=== PATIENT | male | born 1970 | race Caucasian/White ===

== ENCOUNTER 2021-03-17 19:09 | Emergency (ER) | payer BC ==
[~2021-03-17] VITALS: Ht 182.8 cm; Wt 103.6 kg
[2021-03-17] MEDS ORDERED: KETOROLAC 60 MG/2 ML VIAL IM ONE (19:45)
[2021-03-17] MEDS ORDERED: predniSONE 20 MG TAB PO ONE (19:45)
[2021-03-17] MEDS ORDERED: ORPHENADRINE 60 MG/2 ML (NORFLEX) AMP (ED ONLY) IM ONE (19:45)
[2021-03-17] MEDS ORDERED: METHOCARBAMOL 750 MG (ROBAXIN) TAB PO ONE (19:45)
[2021-03-17] MEDS ORDERED: PRD20T PO (19:46)
[2021-03-17] MEDS ORDERED: METH-731 PO (19:46)
--- NOTE | 2021-03-17 19:46 | ED Back Pain ---
General Chief Complaint: Back Problems Stated Complaint: LOWER BACK PAIN Nursing Triage Note: Pt ambulatory into ER with complaint of lower back pain that started today while working. 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 Pt denies twisting wrong of falling. Pt is unsure of cause. Source of Information: Patient Exam Limitations: No Limitations History of Present Illness Date Seen by Provider: Mar 17, 2021 Time Seen by Provider: 19:42 Initial Comments To ER with low back pain that started today while at work. 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 He still on his probationary period for the railroad. His pain is midline low back that occasionally radiates down the left leg. No fevers or chills no trauma no loss of bowel or bladder control or numbness of his genitals. Location: Lumbar Spine Timing/Duration: 2-3 Days Severity: Moderate Pain/Injury Location: Back Associated Symptoms: denies symptoms Allergies and Home Medications Allergies Coded Allergies: No Known Drug Allergies (Unverified , 03/17/21) Home Medications Methocarbamol 500 Mg Tablet, 500 MG PO Q6-8HR Prescribed by: RONN AUGUSTIN on 03/17/211945 Prednisone 20 Mg Tab, 40 MG PO DAILY Prescribed by: RONN AUGUSTIN on 03/17/211945 Patient Home Medication List Home Medication List Reviewed: Yes Review of Systems Constitutional: see HPI EENTM: see HPI Respiratory: no symptoms reported Cardiovascular: no symptoms reported Genitourinary: no symptoms reported Musculoskeletal: see HPI Skin: no symptoms reported Psychiatric/Neurological: No Symptoms Reported Past [id number] Hx Patient Social History Tobacco Use?: No Use of E-Cig and/or Vaping dev: No Substance use?: No Alcohol Use?: No Pt feels they are or have been: No Immunizations Up To Date Influenza Vaccine Up-to-Date: No; Not Current Second COVID19 Vaccination Livan: December 2020 COVID19 Vaccine Ingot Caster: Kandis Physical Exam Vital Signs Vital Signs - First Documented 03/17/21 19:23 Temp 36.1 Pulse 84 Resp 20 B/P (MAP) 145/97 (113) Pulse Ox 95 O2 Delivery Room Air Capillary Refill : Less Than 3 Seconds Height, Weight, BMI Height: '" Weight: lbs. oz. kg; 31.00 BMI Method: General Appearance: No Apparent Distress, WD/WN HEENT: PERRL/EOMI, TMs Normal Neck: Full Range of Motion, Normal Inspection Cardiovascular: Regular Rate, Rhythm, Normal Peripheral Pulses Respiratory: No Accessory Muscle Use, No Respiratory Distress Gastrointestinal: Normal Bowel Sounds, Non Tender, Soft Neurologic/Psychiatric: Alert, Oriented x3 Skin: Normal Color, Warm/Dry Progress/Results/Core Measures Results/Orders My Orders Orders - RONN AUGUSTIN APRN Prednisone Tablet (Deltasone Tablet) (03/17/21 19:45) Ketorolac Injection (Toradol Injection) (03/17/21 19:45) Orphenadrine Inj (Ed Only) (Norflex Inje (03/17/21 19:45) Methocarbamol Tablet (Robaxin Tablet) (03/17/21 19:45) Medications Given in ED Current Medications Medications Dose Ordered Sig/Patricio Route Start Time Stop Time Status Last Admin Dose Admin Ketorolac Tromethamine 60 mg ONCE ONCE IM 03/17/21 19:45 03/17/21 19:46 DC 03/17/21 20:03 60 MG Orphenadrine Citrate 60 mg ONCE ONCE IM 03/17/21 19:45 03/17/21 19:46 DC 03/17/21 20:01 60 MG Prednisone 40 mg ONCE ONCE PO 03/17/21 19:45 03/17/21 19:46 DC 03/17/21 20:03 40 MG Vital Signs/I&O 03/17/21 19:23 Temp 36.1 Pulse 84 Resp 20 B/P (MAP) 145/97 (113) Pulse Ox 95 O2 Delivery Room Air Blood Pressure Mean: 113 Departure Communication (Admissions) 2005-now complains of some right upper quadrant abdominal pain ongoing for several months with tenderness to palpation. History of pancreatitis he like to be checked for this to. Impression Primary Impression: Acute low back pain Disposition: HOME, SELF-CARE Condition: Stable Departure-Patient Inst. Decision time for Depature: 19:44 Patient Instructions: Low Back Pain (DC) Add. Discharge Instructions: 1. Follow-up with a primary care provider to help get a MRI of the low back scheduled. This will help to determine the cause of your pain though most of the time this is related to a disc bulge. Most of the time disc bulges resolve on their own with or without treatment but medications can help to make that a little more tolerable. All discharge instructions reviewed with patient and/or family. Voiced understanding. Scripts Methocarbamol (Methocarbamol) 500 Mg Tablet 500 MG PO Q6-8HR for Back Pain, #30 TAB Prov: RONN AUGUSTIN APRN 03/17/21 Prednisone (Prednisone) 20 Mg Tab 40 MG PO DAILY, #6 TAB 0 Refills Prov: RONN AUGUSTIN APRN 03/17/21 RONN AUGUSTIN APRN Mar 17, 2021 19:46
[2021-03-17 20:17] LABS: BASOPHILS % (AUTO) 0 % (0-10); EOSINOPHILS # (AUTO) 0.1 10^3/uL (0.0-0.3); EOSINOPHILS % (AUTO) 1 % (0-10); HEMATOCRIT 45 % (40-54); HEMOGLOBIN 15.4 g/dL (13.3-17.7); LYMPHOCYTES % (AUTO) 26 % (12-44); MEAN CORPUSCULAR HEMOGLOBIN 31 pg (25-34); MEAN CORPUSCULAR HGB CONC 34 g/dL (32-36); MEAN CORPUSCULAR VOLUME 91 fL (80-99); MONOCYTES # (AUTO) 0.6 10^3/uL (0.0-1.0); MONOCYTES % (AUTO) 8 % (0-12); NEUTROPHILS % (AUTO) 64 % (42-75); PLATELET COUNT 202 10^3/uL (130-400); WHITE BLOOD COUNT 7.8 10^3/uL (4.3-11.0)
[2021-03-17 20:39] LABS: ALBUMIN 4.4 GM/DL (3.2-4.5); BILIRUBIN,TOTAL 0.6 MG/DL (0.1-1.0); CALCIUM 9.3 MG/DL (8.5-10.1); CREATININE SERUM 1.1 MG/DL (0.60-1.30); POTASSIUM 4.2 MMOL/L (3.6-5.0); TOTAL PROTEIN 7.6 GM/DL (6.4-8.2)
[2021-03-17 20:47] VITALS: BP 145/87
== END 2021-03-17 20:43 | disposition home or self-care (01) ==
LOC: ER 19:13
DX: M54.5 Low back pain (principal)
CPT/HCPCS: 36415; 80053; 83690; 85025